=== PATIENT | female | born 1960 | race Caucasian/White ===

== ENCOUNTER → 2018-05-17 11:34 | Outpatient (CLI) | payer OTHER, SELFPAY ==
--- NOTE | 2018-05-17 | DI.MG.S_ITS ---
BILATERAL DIGITAL SCREENING MAMMOGRAM 3D/2D WITH CAD: 05/17/2018 CLINICAL: Routine screening. Personal history of left breast cancer. Comparison is made to exams dated: 05/04/2017 mammogram, 04/12/2016 mammogram, and 03/26/2014 mammogram - [facility]. There are scattered fibroglandular elements in both breasts. Current study was also evaluated with a Computer Aided Detection (CAD) system. There are post operative findings in the left breast including surgical clips and dystrophic calcifications. A linear scar marker overlies the left breast. No significant masses, calcifications, or other findings are seen in either breast. There has been no significant interval change. IMPRESSION: NEGATIVE There is no mammographic evidence of malignancy. A 1 year screening mammogram is recommended. This exam was interpreted at Station ID: [id number]. NOTE: For mammograms, a report in lay terms will be sent to the patient. Approximately 15% of breast malignancies will not be visualized mammographically. In the management of a palpable breast mass, a negative mammogram must not discourage biopsy of a clinically suspicious lesion. Electronically Signed By: Juan Pablo Conti M.D. ecl/:05/19/2018 02:12:55 letter sent: Normal Exam ACR BI-RADS Category 1: Negative 3341F
== END ==
PROVIDERS: Visit Provider Family Medicine
DX: Z12.31 Encounter for screening mammogram for malignant neoplasm of breast (principal); Z85.3 Personal history of malignant neoplasm of breast
CPT/HCPCS: 77063; 77067

== ENCOUNTER → 2019-04-18 10:58 | Outpatient (CLI) | payer OTHER, SELFPAY ==
--- NOTE | 2019-04-20 16:01 | PM.PFT.1 ---
Pulmonary Function Test Referral & Results Date Patient Seen: 04/18/19 Requesting provider: Karin Escobar Results: The spirometry demonstrates an FVC of 3.54 L which is 109% of predicted. The FEV1 was measured at 3.01 L which is 120% of predicted. The FEV1/FVC ratio was 85 which is 109% of predicted. Following the administration of bronchodilator there was no appreciable change to above normal numbers. No lung volumes or diffusing capacity were performed Interpretation: No evidence of obstructive lung disease based on above numbers
== END ==
PROVIDERS: PCP Family Medicine; Visit Provider Family Medicine
DX: R05 Cough (principal); R06.2 Wheezing
CPT/HCPCS: 94060

== ENCOUNTER → 2019-08-07 12:16 | Outpatient (CLI) | payer OTHER, SELFPAY ==
--- NOTE | 2019-08-07 | DI.MG.S_ITS ---
BILATERAL DIGITAL SCREENING MAMMOGRAM 3D/2D WITH CAD: 08/07/2019 CLINICAL: Routine screening. Personal history of left breast cancer. Comparison is made to exams dated: 05/17/2018 mammogram, 05/04/2017 mammogram, 04/12/2016 mammogram, and 03/26/2014 mammogram - [facility]. There are scattered fibroglandular elements in both breasts. Current study was also evaluated with a Computer Aided Detection (CAD) system. There are benign post operative findings in the left breast with linear scar markers overlying the left breast and axilla. No suspicious masses, calcifications, or other findings are seen in either breast. There has been no significant interval change. IMPRESSION: There is no mammographic evidence of malignancy. A 1 year screening mammogram is recommended. This exam was interpreted at Station ID: [id number]. NOTE: For mammograms, a report in lay terms will be sent to the patient. Approximately 15% of breast malignancies will not be visualized mammographically. In the management of a palpable breast mass, a negative mammogram must not discourage biopsy of a clinically suspicious lesion. Electronically Signed By: Juan Pablo Conti M.D. ecl/:08/07/2019 17:21:22 letter sent: Normal Exam ACR BI-RADS Category 2: Benign Finding(s) 3342F
== END ==
PROVIDERS: PCP Family Medicine; Visit Provider Family Medicine
DX: Z12.31 Encounter for screening mammogram for malignant neoplasm of breast (principal); Z85.3 Personal history of malignant neoplasm of breast
CPT/HCPCS: 77063; 77067

== ENCOUNTER → 2021-08-11 11:39 | Outpatient (CLI) | payer OTHER, SELFPAY ==
--- NOTE | 2021-08-11 | DI.MG.S_ITS ---
BILATERAL DIGITAL SCREENING MAMMOGRAM 3D/2D WITH CAD: 08/11/2021 CLINICAL: Routine screening. Personal history of left breast cancer. Comparison is made to exams dated: 08/07/2019 mammogram, 05/17/2018 mammogram, and 05/04/2017 mammogram - [facility]. There are scattered fibroglandular elements in both breasts. Current study was also evaluated with a Computer Aided Detection (CAD) system. There are benign calcifications in the left breast. There also are benign post operative findings in the left breast. No significant masses, calcifications, or other findings are seen in either breast. There has been no significant interval change. IMPRESSION: BENIGN There is no mammographic evidence of malignancy. A 1 year screening mammogram is recommended. This exam was interpreted at Station ID: [id number]. NOTE: For mammograms, a report in lay terms will be sent to the patient. Approximately 15% of breast malignancies will not be visualized mammographically. In the management of a palpable breast mass, a negative mammogram must not discourage biopsy of a clinically suspicious lesion. Electronically Signed By: Rafael sethi/adelia:08/11/2021 13:11:01 letter sent: Normal Exam ACR BI-RADS Category 2: Benign Finding(s) 3342F
== END ==
PROVIDERS: PCP Family Medicine; Referring Provider Family Medicine; Visit Provider Family Medicine
DX: Z12.31 Encounter for screening mammogram for malignant neoplasm of breast (principal); Z85.3 Personal history of malignant neoplasm of breast
CPT/HCPCS: 77063; 77067

== ENCOUNTER 2022-09-29 09:10 | Emergency (ER) | payer OTHER, SELFPAY ==
[2022-09-29 09:11] VITALS: BP 195/97; PULSE 69; RESP 15; TEMP 36.2; O2SAT 98; BMI 31.5
--- NOTE | 2022-09-29 09:16 | DI.RAD.S_ITS ---
PROCEDURE: XR HAND RT MIN 3V INDICATIONS: fall with hand pain approx 10 days TECHNIQUE: 3 views of the hand(s) acquired. COMPARISON: None. FINDINGS: Bones: No displaced fracture. No dislocation. Mild scattered arthrosis. Age-indeterminate bone fragment adjacent to the ulnar styloid is seen. Soft tissues: No suspicious soft tissue calcifications. IMPRESSION: No definitely acute/displaced fracture or dislocation. There is an age indeterminate bone fragment adjacent to the ulnar styloid, probably from prior injury, correlate with point tenderness. Dictated by: Henrique Way M.D. on 09/29/2022 at 9:44 Approved by: Henrique Way M.D. on 09/29/2022 at 9:46
--- NOTE | 2022-09-29 11:39 | ED_ITS ---
HPI - Extremity Injury (Upper) General Chief Complaint: Extremity Injury, Upper Stated Complaint: fell a week ago on rt hand, possible fracture Time Seen by Provider: 09/29/22 11:29 Source: patient Mode of arrival: Ambulatory History of Present Illness HPI narrative: Patient here for evaluation of right hand injury. One week ago she was walking her dog and tripped and fell and stretched out her hand to break her fall. Denies any other injuries. No shoulder or wrist or elbow pain or injury. Has been able to use her hand but has discomfort with gripping. Patient is right- handed. No skin injury. No previous surgery to the hand. No numbness tingling or weakness. She is able to palpate a small nodule at the palmar surface of the 2nd MCP joint. This is new. She does have history of ganglion cyst removal on her right wrist in the past. Related Data Home Medications Medication Instructions Recorded Confirmed B.ANI/L.ACI/L.ALMA/L.PLAN/L.LAUREL 1 cap PO ##0 04/06/11 07/09/22 (Probiotic Formula Capsule) CHOLECALCIFEROL (VITAMIN D3) 400 iu PO Q DAY ##0 04/06/11 07/09/22 [LYSINE] PRN ##0 04/06/11 07/09/22 ascorbic acid (vitamin C) 1,000 mg 1 g PO DAILY 06/18/21 07/09/22 tablet Previous Rx's Medication Instructions Recorded duloxetine 20 mg capsule,delayed See Rx Instructions .Route 07/20/21 release .COMPLEX #30 caps trazodone 50 mg tablet See Rx Instructions .Route 10/06/22 .COMPLEX #30 tabs Allergies Allergy/AdvReac Type Severity Reaction Status Date / Time codeine AdvReac Unknown Itching Verified 09/29/22 09:13 Review of Systems Review of Systems Narrative: GENERAL: negative chills, fatigue, malaise, fever, sweats. HEENT: negative sinus pain, ear pain, sore throat RESPIRATORY: negative dyspnea, cough CARDIOVASCULAR: negative chest pain, palpitations GASTROINTESTINAL: negative nausea, vomiting, abdominal pain : negative dysuria, frequency, hematuria MUSCULOSKELETAL: Positive muscle or bony pain SKIN: negative rash, skin lesions NEUROLOGIC: negative weakness, numbness ROS Unobtainable: All systems reviewed & are unremarkable except as noted in HPI and below Patient History Medical History Adenomatous polyp Anemia Anxiety (~2019) Chronic cough (~2016) Chronic superficial gastritis without bleeding Depression (~2020) Family history of colon cancer in father GERD (gastroesophageal reflux disease) Herpes (~1986) Personal history of breast cancer (~2007) Sleep apnea (~2019) Surgical History Anesthesia History of section (~1995) History of lumpectomy of left breast (~2007) Family History Father Cancer Brother Cancer Social History Smoking Status: Never smoker Smoking Status: Never smoker alcohol intake frequency: holidays/special occasions only Substance Use Type: does not use Exam Narrative Exam Narrative: GENERAL: in no distress, not toxic not dyspneic HEAD: Normocephalic. EXTREMITIES: No gross deformities. Examination right upper extremity nontender elbow and wrist with no gross deformities. No deformity of the right hand. Hand is warm soft and pink with brisk cap refills with light touch intact to fingers and thumb. Able to make a hunter trapper. Palm is nontender but there is a palpable small cyst like nodule at the palmar surface of the 2nd MCP joint. Skin is intact. NEURO: AOx4. SKIN: Warm and dry PSYCH: Not anxious, is cooperative Initial Vital Signs Initial Vital Signs: Vital Signs Temperature 97.1 F L 09/29/22 09:11 Pulse Rate 69 09/29/22 09:11 Respiratory Rate 15 09/29/22 09:11 Blood Pressure 195/97 H 09/29/22 09:11 Pulse Oximetry 98 09/29/22 09:11 Oxygen Delivery Method 09/29/22 09:11 Course Orders Ordered: ED Orders 09/29/22 09:16 XR hand RT min 3V Stat Vital Signs Vital signs: Vital Signs - 8 hr 09/29/22 09:11 Temperature 97.1 F L Pulse Rate 69 Respiratory Rate 15 Blood Pressure 195/97 H Pulse Oximetry 98 Oxygen Delivery Method Room Air MDM - Extremity Injury (Upper) Imaging Data Extremity x-ray #1: Radiologist's Impression: [address] [address] XRay Report Signed Patient: Leonarda Manley MR#: [id number] : 1960 Acct:[id number] Age/Sex: 62 / F Date of Service: 09/29/22 Loc: ED Accession Number: [id number] ?? Procedure: XR hand RT min 3V Ordering Provider: oJseluis Coyle MD PROCEDURE:? XR HAND RT MIN 3V ? INDICATIONS:? fall with hand pain approx 10 days ? TECHNIQUE:? 3 views of the hand(s) acquired.? ? COMPARISON:? None. ? FINDINGS:? ? Bones:? No displaced fracture.? No dislocation.? Mild scattered arthrosis.? Age-indeterminate bone fragment adjacent to the ulnar styloid is seen. ? Soft tissues:? No suspicious soft tissue calcifications.? ? ? IMPRESSION:? No definitely acute/displaced fracture or dislocation.? There is an age indeterminate bone fragment adjacent to the ulnar styloid, probably from prior injury, correlate with point tenderness. ? ? Dictated by: Henrique Way M.D. on 09/29/2022 at 9:44 ? ? Approved by: Henrique Way M.D. on 09/29/2022 at 9:46 ? MDM Narrative Medical decision making narrative: Patient here for evaluation of right hand injury. One week ago she was walking her dog and tripped and fell and stretched out her hand to break her fall. Denies any other injuries. No shoulder or wrist or elbow pain or injury. Has been able to use her hand but has discomfort with gripping. Patient is right- handed. No skin injury. No previous surgery to the hand. No numbness tingling or weakness. She is able to palpate a small nodule at the palmar surface of the 2nd MCP joint. This is new. She does have history of ganglion cyst removal on her right wrist in the past. After exam, no blood work indicated. X-ray is ordered and resulted. It is reassuring. Pain is controlled. No medications required MDM CC: Hand pain Complicating co-morbidities: None Data collected from: Patient Medical records reviewed: No previous visits for hand injury Differential considered: Includes but not limited to fracture/sprain/strain/contusion of the hand Exam documented above, pertinent findings include: Small palpable nodule Imaging studies independently reviewed: X-ray right hand no acute process Treatments: No medications required Re-evaluations: Reviewed results with patient, x-rays reassuring. Nodule likely synovial cyst from injury. Agrees for follow-up with orthopedics. Discussion: Appropriate for discharge home. Patient can follow up with orthopedic provider. Cyst likely ganglion cyst. Pain is controlled. No medications required no splinting required. Return precautions reviewed with patient. Diagnosis: Right hand contusion Discharge Plan Departure Patient Disposition: Home Clinical Impression: Contusion of right hand, initial encounter Instructions: DI for Contusion Activity Restrictions/Additional Instructions: Call provided orthopedic surgeon today or tomorrow for office appointment for evaluation of your hand injury and nodule on your palm. May continue ibuprofen for pain. Return if worse if any questions or concerns Prescriptions: No Action [LYSINE] PRN Qty: 0 CHOLECALCIFEROL (VITAMIN D3) 400 iu PO Q DAY Qty: 0 B.ANI/L.ACI/L.ALMA/L.PLAN/L.LAUREL (Probiotic Formula Capsule) 1 cap PO Qty: 0 duloxetine 20 mg capsule,delayed release(DR/EC) See Rx Instructions .ROUTE .COMPLEX Qty: 30 3RF Dose Instruction: TAKE ONE CAPSULE BY MOUTH EVERY DAY Rx Instructions: TAKE ONE CAPSULE BY MOUTH EVERY DAY trazodone 50 mg tablet See Rx Instructions .ROUTE .COMPLEX Qty: 30 0RF Dose Instruction: TAKE ONE TABLET BY MOUTH AT BEDTIME NEEDED FOR INSOMNIA Rx Instructions: TAKE HALF TABLET BY MOUTH AT BEDTIME NEEDED FOR INSOMNIA ascorbic acid (vitamin C) 1,000 mg tablet 1 g PO DAILY Referrals: Eben Ahn MD [Physician] - Belle Rabago PA-C [Primary Care Provider] - Stand Alone Forms: Patient Portal/API
[2022-09-29 11:51] VITALS: PULSE 74; RESP 18; O2SAT 97
== END 2022-09-29 11:52 | disposition home or self-care (01) ==
PROVIDERS: Emergency Provider Emergency Medicine; PCP Physician Assistant Medical
DX: S60.221A Contusion of right hand, initial encounter (principal); W01.0XXA Fall on same level from slipping, tripping and stumbling without subsequent striking against object, initial encounter; Y93.K1 Activity, walking an animal
CPT/HCPCS: 73130; 99281; 99283

== ENCOUNTER → 2022-11-16 08:44 | Outpatient (CLI) | payer OTHER, SELFPAY ==
--- NOTE | 2022-11-16 08:45 | DI.US.S_ITS ---
LIMITED ULTRASOUND OF LEFT BREAST: 11/16/2022 CLINICAL: Focal left breast pain. Post left lumpectomy. Comparison is made to exams dated: 11/16/2022 mammogram, 08/11/2021 mammogram, 08/07/2019 mammogram, and 05/17/2018 mammogram - [facility]. Real-time ultrasound of the left breast 3 o'clock region was performed. Amin scale images of the real-time examination were reviewed. No significant abnormalities were seen sonographically in the left breast. IMPRESSION: NEGATIVE There is no sonographic evidence of malignancy. There is no abnormality seen in the left breast to correspond with the pain, however, clinical followup is recommended. Return to annual mammogram screening schedule is recommended. This exam was interpreted at Station ID: [id number]. Electronically Signed By: Kvng segundo/adelia:11/16/2022 10:09:42 letter sent: Clinical Evaluation Ultrasound BI-RADS: 1 Negative
--- NOTE | 2022-11-16 08:45 | DI.MG.S_ITS ---
BILATERAL DIGITAL DIAGNOSTIC MAMMOGRAM 3D/2D POST LUMPECTOMY: 11/16/2022 CLINICAL: Breast pain. Comparison is made to exams dated: 08/11/2021 mammogram, 08/07/2019 mammogram, and 05/17/2018 mammogram - [facility]. There are scattered areas of fibroglandular density in both breasts (category b / 25%-50% glandular tissue). There are stable benign post operative findings in the left breast. No significant masses, calcifications, or other findings are seen in either breast. IMPRESSION: INCOMPLETE: NEEDS ADDITIONAL IMAGING EVALUATION There is no abnormality seen in the left breast to correspond with the pain in the lateral aspect, however, ultrasound is recommended. This exam was interpreted at Station ID: [id number]. NOTE: For mammograms, a report in lay terms will be sent to the patient. Approximately 15% of breast malignancies will not be visualized mammographically. In the management of a palpable breast mass, a negative mammogram must not discourage biopsy of a clinically suspicious lesion. Electronically Signed By: Kvng segundo/adelia:11/16/2022 10:08:39 ACR BI-RADS Category 0: Incomplete 3340F
== END ==
PROVIDERS: PCP Physician Assistant Medical; Referring Provider Physician Assistant Medical; Visit Provider Physician Assistant Medical
DX: R92.2 Inconclusive mammogram (principal); N64.4 Mastodynia; Z85.3 Personal history of malignant neoplasm of breast
CPT/HCPCS: 76642; 77066; G0279

== ENCOUNTER → 2023-05-26 10:44 | Outpatient (CLI) | payer OTHER, SELFPAY ==
--- NOTE | 2023-05-26 10:46 | DI.CT.S_ITS ---
PROCEDURE: CT SINUS SCREEN WO CON INDICATIONS: continued illness TECHNIQUE: Noncontrast 3.0 mm axial images acquired from the frontal sinuses to the mid-sella, with coronal and sagittal reformats. For radiation dose reduction, the following was used: automated exposure control, adjustment of mA and/or kV according to patient size. COMPARISON: None. FINDINGS: Image quality: Excellent. Maxillary Sinuses: There is moderate mucosal thickening seen within the maxillary sinuses. Portions of the medial wyman of the maxillary sinuses are demineralized. Ethmoid Air Cells: At least moderate mucosal thickening can be seen throughout the ethmoid air cells. There are several sites bony demineralization seen. Sphenoid Sinuses: There is moderate mucosal thickening seen within the medial left sphenoid sinus, with minimal mucosal thickening involving the anterior right sphenoid sinus. No definite bony changes are seen. Frontal Sinuses: The frontal sinuses are poorly developed. There is mild mucosal thickening seen involving the inferior medial frontal sinuses. Ostiomeatal Complexes: The ostiomeatal complexes are highly constitutionally narrowed and demineralized. No definite Lupillo cells are seen. Miscellaneous: Visualized intra-orbital contents are normal. 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 There is moderate leftward nasal septal deviation, with a leftward directed bony nasal septal spur. Focal left temporomandibular joint degenerative change can be seen. IMPRESSION: Multifocal paranasal sinus disease can be seen, which is overall worst within the maxillary sinuses. Highly constitutionally narrowed ostiomeatal complexes. Areas of bony demineralization are seen, which are consistent with chronic sinusitis. 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 There is moderate leftward nasal septal deviation. Dictated by: Subhash Sutton M.D. on 05/26/2023 at 11:57 Approved by: Subhash Sutton M.D. on 05/26/2023 at 12:02
== END ==
PROVIDERS: PCP Physician Assistant Medical; Referring Provider Physician Assistant Medical; Visit Provider Physician Assistant Medical
DX: J34.3 Hypertrophy of nasal turbinates (principal); J34.2 Deviated nasal septum; J32.4 Chronic pansinusitis; J40 Bronchitis, not specified as acute or chronic; R53.81 Other malaise; R53.83 Other fatigue
CPT/HCPCS: 70486

== ENCOUNTER → 2023-06-01 11:32 | Outpatient (CLI) | payer OTHER, SELFPAY ==
[2023-06-01 20:12] LABS: Add Manual Diff / Slide Review NO; Basophils Absolute Auto 0 /uL (0-100); Basophils Percent Auto 0.7 % (0-2); Eosinophils Absolute Auto 500 /uL (0-450); Eosinophils Percent Auto 7.6 % (2-4); Hematocrit 39.4 % (36-46); Hemoglobin 13.4 g/dL (12.0-16.0); Lymphocytes Absolute Auto 2000 /uL (1100-4500); Mean Corpuscular HGB Conc 34.1 % (30-36); Mean Corpuscular Hemoglobin 32.6 PG (26-34); Mean Corpuscular Volume 95.6 fL (80-100); Monocytes Absolute Auto 400 /uL (0-900); Monocytes Percent Auto 6.7 % (3-14); Neutrophils Absolute Auto 3500 /uL (1500-7000); Platelet Count 280 X10^3/uL (150-400); Red Blood Cell Count 4.12 X10^6/uL (4.0-5.2); White Blood Cell Count 6.4 X10^3/uL (4.5-11.0)
[2023-06-01 20:45] LABS: Alanine Aminotransferase 34 IU/L (<35); Albumin 4.3 g/dL (3.5-5.0); Albumin Globulin Ratio 1.3 (1.0-2.8); Alkaline Phosphatase 55 U/L (38-126); Aspartate Aminotransferase 31 IU/L (14-36); BUN Creatinine Ratio 23.2 (6-22); Bilirubin Total 0.4 mg/dL (0.2-1.3); Blood Urea Nitrogen 16 mg/dL (7-17); Calcium 10.1 mg/dL (8.4-10.2); Carbon Dioxide 25 mmol/L (22-32); Chloride 103 mmol/L (98-107); Estimated Glomerular Filt Rate > 60 mL/min (>60); Globulin 3.2 g/dL (1.7-4.1); Glucose 120 mg/dL (80-110); HEMOLYSIS < 15 (0-50); Potassium 4.1 mmol/L (3.4-5.1); Sodium 139 mmol/L (137-145); Total Protein 7.5 g/dL (6.3-8.2)
[2023-06-01 21:07] LABS: TSH w/ Reflex to FT4 1.62 uIU/mL (0.47-4.68)
[2023-06-01 21:55] LABS: Monotest Negative (Negative)
== END ==
PROVIDERS: PCP Physician Assistant Medical; Visit Provider Physician Assistant Medical
DX: J40 Bronchitis, not specified as acute or chronic (principal); R53.83 Other fatigue; R53.81 Other malaise
CPT/HCPCS: 80053; 84443; 85025; 86318

== ENCOUNTER → 2023-11-22 12:20 | Outpatient (CLI) | payer OTHER, SELFPAY ==
[2023-11-22 19:00] LABS: Add Manual Diff / Slide Review NO; Basophils Absolute Auto 0 /uL (0-100); Basophils Percent Auto 0.6 % (0-2); Eosinophils Absolute Auto 500 /uL (0-450); Eosinophils Percent Auto 6.3 % (2-4); Hematocrit 37.6 % (36-46); Hemoglobin 12.8 g/dL (12.0-16.0); Lymphocytes Absolute Auto 2100 /uL (1100-4500); Lymphocytes Percent Auto 28.6 % (25-40); Mean Corpuscular HGB Conc 34.2 % (30-36); Mean Corpuscular Hemoglobin 32.4 PG (26-34); Mean Corpuscular Volume 94.9 fL (80-100); Monocytes Absolute Auto 400 /uL (0-900); Monocytes Percent Auto 5.2 % (3-14); Neutrophils Absolute Auto 4400 /uL (1500-7000); Neutrophils Percent Auto 59.3 % (50-75); Platelet Count 293 X10^3/uL (150-400); Red Blood Cell Count 3.96 X10^6/uL (4.0-5.2); Red Cell Distribution Width 12.6 % (11.6-14.8); White Blood Cell Count 7.5 X10^3/uL (4.5-11.0)
== END ==
PROVIDERS: PCP Physician Assistant Medical; Visit Provider Physician Assistant Medical
DX: R05.9 Cough, unspecified (principal); R89.8 Other abnormal findings in specimens from other organs, systems and tissues
CPT/HCPCS: 85025

== ENCOUNTER → 2023-11-25 14:30 | Outpatient (CLI) | payer OTHER, SELFPAY ==
--- NOTE | 2023-11-25 14:32 | DI.MG.S_ITS ---
BILATERAL DIGITAL SCREENING MAMMOGRAM 3D/2D WITH CAD: 11/25/2023 CLINICAL: Routine screening. Personal history of left breast cancer. Comparison is made to exams dated: 11/16/2022 mammogram, 08/11/2021 mammogram, and 08/07/2019 mammogram - [facility]. There are scattered areas of fibroglandular density in both breasts (category b / 25%-50% glandular tissue). Current study was also evaluated with a Computer Aided Detection (CAD) system. There are benign post operative findings in the left breast. No significant masses, calcifications, or other findings are seen in either breast. There has been no significant interval change. IMPRESSION: BENIGN There is no mammographic evidence of malignancy. A 1 year screening mammogram is recommended. This exam was interpreted at Station ID: [id number]. NOTE: For mammograms, a report in lay terms will be sent to the patient. Approximately 15% of breast malignancies will not be visualized mammographically. In the management of a palpable breast mass, a negative mammogram must not discourage biopsy of a clinically suspicious lesion. Electronically Signed By: Mary guerrero/adelia:11/25/2023 15:46:19 letter sent: Normal Exam ACR BI-RADS Category 2: Benign Finding(s) 3342F
== END ==
LOC: MAMMO 14:31
PROVIDERS: PCP Physician Assistant Medical; Referring Provider Physician Assistant Medical; Visit Provider Physician Assistant Medical
DX: Z12.31 Encounter for screening mammogram for malignant neoplasm of breast (principal); Z85.3 Personal history of malignant neoplasm of breast; R92.323 Mammographic fibroglandular density, bilateral breasts
CPT/HCPCS: 77063; 77067

== ENCOUNTER → 2024-09-03 08:55 | Outpatient (CLI) | payer OTHER, SELFPAY ==
--- NOTE | 2024-09-03 08:58 | DI.RAD.S_ITS ---
PROCEDURE: XR KNEE RT 3V INDICATIONS: bilateral knee pain, worse on left, hx of arthritis TECHNIQUE: 3 views of the knee were acquired. COMPARISON: [facility] ([facility]), , XR KNEE RT 3V, 09/26/2023, 8:44. FINDINGS: No acute fracture or dislocation. Accounting for interobserver variability, minimal medial and mild patellofemoral osteoarthritis. The lateral compartment is within normal limits. No significant joint effusion. IMPRESSION: Minimal medial and mild patellofemoral osteoarthritis. Dictated by: Carlos Raygoza M.D. on 09/03/2024 at 13:00 Approved by: Carlos Raygoza M.D. on 09/03/2024 at 13:01
--- NOTE | 2024-09-03 08:58 | DI.RAD.S_ITS ---
PROCEDURE: XR KNEE LT 3V INDICATIONS: bilateral knee pain, worse on left, hx of arthritis TECHNIQUE: 3 views of the knee were acquired. COMPARISON: [facility] ([facility]), CR, XR KNEE RT 3V, 09/26/2023, 8:44. FINDINGS: Bones: No fractures or dislocations. No suspicious bony lesions. Soft tissues: No joint effusion. No suspicious soft tissue calcifications. IMPRESSION: No acute bony abnormality or significant effusion. Dictated by: Carlos Raygoza M.D. on 09/03/2024 at 12:51 Approved by: Carlos Raygoza M.D. on 09/03/2024 at 12:52
== END ==
LOC: RAD 08:57
PROVIDERS: PCP Physician Assistant Medical; Referring Provider Naturopath; Visit Provider Naturopath
DX: M17.12 Unilateral primary osteoarthritis, left knee (principal); M25.562 Pain in left knee
CPT/HCPCS: 73562

== ENCOUNTER 2024-10-13 16:53 | Emergency (ER) | payer OTHER, SELFPAY ==
[2024-10-13 17:50] VITALS: BP 183/87; PULSE 65; RESP 16; TEMP 37.1; O2SAT 97; BMI 30.9
--- NOTE | 2024-10-13 18:15 | DI.RAD.S_ITS ---
PROCEDURE: XR SHOULDER RT MIN 2V INDICATIONS: right shoulder injury from accident TECHNIQUE: 3 views of the shoulder were acquired. COMPARISON: None. FINDINGS: Bones: No fractures or dislocations. Calcification along the humeral head. No suspicious bony lesions. Visualized ribs appear intact. Soft tissues: No suspicious soft tissue calcifications. IMPRESSION: No acute bony abnormality. Calcification along the humeral head suggestive of calcific tendinosis. Dictated by: Joseluis Arce M.D. on 10/13/2024 at 18:01 Approved by: Joseluis Arce M.D. on 10/13/2024 at 18:06
--- NOTE | 2024-10-13 18:41 | PC.NURSE ---
Pt reports walking with dog when it pulled her arm. Pt thinks something ripped in her arm. Pt endorses pain deep in shoulder joint socket. Pt denies pain to palpation of clavicle and humerus. No deformities palpated. Cap refill <2 seconds. Radial pulses intact.
--- NOTE | 2024-10-13 20:21 | ED_ITS ---
HPI - Extremity Injury (Upper) General Chief Complaint: Extremity Injury, Upper Stated Complaint: shoulder injury Time Seen by Provider: 10/13/24 20:21 Source: patient Mode of arrival: Ambulatory History of Present Illness HPI narrative: Patient is a 64-year-old female past medical history of anxiety, depression, comes into the ED from home for evaluation of right shoulder pain. She states that earlier today she was walking her 80 lb dog who Dilaudid in the wrong direction and had to pull the dog back. She had immediate pain to her right shoulder but denies any actual numbness weakness tingling to the right extremity. She states that she did not fall did not strike her head not on any blood thinners denies any other pain, she states that she is only having pain to her right shoulder. Related Data Home Medications Medication Instructions Recorded Confirmed B.ANI/L.ACI/L.ALMA/L.PLAN/L.LAUREL 1 cap PO ##0 04/06/11 08/30/24 (Probiotic Formula Capsule) CHOLECALCIFEROL (VITAMIN D3) 400 iu PO Q DAY ##0 04/06/11 08/30/24 [LYSINE] PRN ##0 04/06/11 08/30/24 ascorbic acid (vitamin C) 1,000 mg 1 g PO DAILY 06/18/21 08/30/24 tablet Previous Rx's Medication Instructions Recorded prednisone 20 mg tablet 40 mg (2 x 20 mg) PO DAILY #10 tabs 07/08/23 albuterol sulfate 90 mcg/actuation 2 puff inhalation Q6H PRN 10/24/23 aerosol inhaler shortness of breath or wheezing #8.5 grams baclofen 10 mg tablet 10 mg PO TID #30 tabs 10/24/23 benzonatate 100 mg capsule 100 mg PO BID-TID PRN cough #20 10/24/23 caps cetirizine 10 mg capsule (Zyrtec) 10 mg PO DAILY PRN cough #90 caps 10/24/23 trazodone 50 mg tablet 25 mg (1/2 x 50 mg) .Route 11/28/23 .COMPLEX PRN insomnia #90 tabs celecoxib 100 mg capsule 100 mg PO BID #30 caps 10/02/24 baclofen 10 mg tablet 10 mg PO BEDTIME 1 week #7 tabs 10/13/24 naproxen 500 mg tablet (Naprosyn) 500 mg PO BID PRN pain 1 week #14 10/13/24 tabs Allergies Allergy/AdvReac Type Severity Reaction Status Date / Time codeine AdvReac Unknown Itching Verified 10/13/24 18:05 Review of Systems Review of Systems Narrative: General: Denies fever, chills, weight loss HEENT: Denies headache, eye drainage, eye irritation, head trauma, sore throat, voice change Cardiovascular: Denies any chest pain, palpitations, shortness of breath, tachycardia Respiratory: Denies any shortness of breath, cough, wheeze, stridor GI/: Denies any abdominal pain, nausea, vomiting, diarrhea, bright red blood per rectum, melanotic stools, urinary frequency, urinary retention, dysuria, hematuria MSK: Positive right shoulder pain Denies muscle pains, swelling Skin: Denies any rashes, lesions, discoloration Neuro: Denies any headache, lightheadedness, dizziness, fainting, weakness Psych: Denies SI/HI Patient History Medical History (Updated 10/13/24 @ 20:28 by Tc Vanegas DO) Depression (~2020) Anxiety (~2019) Anemia Herpes (~1986) GERD (gastroesophageal reflux disease) Sleep apnea (~2019) Personal history of breast cancer (~2007) Family history of colon cancer in father Chronic cough (~2016) Adenomatous polyp Chronic superficial gastritis without bleeding Surgical History Anesthesia History of section (~1995) History of lumpectomy of left breast (~2007) Family History Father Cancer Brother Cancer Social History Smoking Status: Never smoker Smoking Status: Never smoker alcohol intake frequency: holidays/special occasions only Exam Narrative Exam Narrative: General: Cooperative, comfortable, well-developed, not in acute distress HEENT: Normocephalic, atraumatic, PERRLA, normal sclera, eyelids normal, Neck: Active full range of motion, atraumatic Chest: Normal to inspection, negative crepitus, no overlying erythema ecchymosis Respiratory: Normal respiratory effort, not in acute respiratory distress, clear to auscultation bilaterally negative cough, wheeze, tachypnea, rhonchi, rales Cardiology: Regular rate rhythm negative gallop, murmur, rubs GI/: Normal to inspection, soft, nonrigid, no tenderness to palpation, exam deferred MSK: Patient with minor tenderness to palpation of the right shoulder, decreased active range of motion, however full passive range of motion, no crepitus, no tenderness to palpation of the elbow wrist neurovascularly intact no other tenderness to palpation of any bony prominences Skin: No rashes lesions noted Neuro: Alert awake oriented x3, moves all 4 extremities spontaneously, cranial nerves intact, able to answer all questions appropriately follows commands appropriately Psych: Cooperative, negative suicidal or homicidal ideations Initial Vital Signs Initial Vital Signs: Vital Signs Temperature 98.8 F 10/13/24 17:50 Pulse Rate 65 10/13/24 17:50 Respiratory Rate 16 10/13/24 17:50 Blood Pressure 183/87 H 10/13/24 17:50 Pulse Oximetry 97 10/13/24 17:50 Oxygen Delivery Method Room Air 10/13/24 17:50 Course Orders Ordered: ED Orders 10/13/24 18:15 XR shoulder RT min 2V Stat Discontinued Medications Baclofen (Baclofen 10 Mg Tablet) 10 mg PO NOW ONE Stop: 10/13/24 20:22 Last Admin: 10/13/24 20:36 Dose: 10 mg Documented By: JEFFERY Naproxen (Naproxen 250 Mg Tablet) 500 mg PO NOW ONE Stop: 10/13/24 20:22 Last Admin: 10/13/24 20:31 Dose: 500 mg Documented By: JEFFERY Vital Signs Vital signs: Vital Signs - 8 hr 10/13/24 17:50 Temperature 98.8 F Pulse Rate 65 Respiratory Rate 16 Blood Pressure 183/87 H Pulse Oximetry 97 Oxygen Delivery Method Room Air MDM - Extremity Injury (Upper) Differential Diagnosis Differential diagnosis: Likely other (Strain, sprain, rotator cuff tear) Imaging Data Extremity x-ray #1: Radiologist's Impression: [address] [address] XRay Report Signed Patient: Leonarda Manley MR#: [id number] : 1960 Acct:[id number] Age/Sex: 64 / F Date of Service: 10/13/24 Loc: ED Accession Number: [id number] Procedure: XR shoulder RT min 2V Ordering Provider: Alee Higgins D.O. PROCEDURE: XR SHOULDER RT MIN 2V INDICATIONS: right shoulder injury from accident TECHNIQUE: 3 views of the shoulder were acquired. COMPARISON: None. FINDINGS: Bones: No fractures or dislocations. Calcification along the humeral head. No suspicious bony lesions. Visualized ribs appear intact. Soft tissues: No suspicious soft tissue calcifications. IMPRESSION: No acute bony abnormality. Calcification along the humeral head suggestive of calcific tendinosis. MDM Narrative Medical decision making narrative: 64-year-old female no significant past medical history presenting to the emergency department for right shoulder pain after being pulled by her 80 lb dog, no trauma no falls, only complaining of right shoulder pain was placed prophylactically any sling by EMS, on exam patient with decreased active range of motion secondary to pain but has full passive range of motion, x-ray without any signs of avulsion fractures, no tenderness to palpation of the elbow wrist neurovascularly intact otherwise. Patient is physical exam most likely secondary to acute strain sprain or rotator cuff tear. Patient will be sent home in a right sling for comfort symptomatic relief as well as instructed follow up with Orthopedic surgery and primary care in outpatient setting, she was given strict return precautions, she verbalized understanding of this and agrees to being discharged home with outpatient follow up Discharge Plan Departure Patient Disposition: Home Clinical Impression: Acute pain of right shoulder Instructions: DI for Rotator Cuff Injury Activity Restrictions/Additional Instructions: Please follow up with the primary care and orthopedic surgery Please read the discharge instructions sheet carefully and bring all papers to all doctor follow-up visits, as it may contain information that your doctor may want to see. Disease processes change and evolve, if your symptoms worsen or if you develop any new symptoms that are concerning to you please return for evaluation. Your evaluation today does not show any evidence of any life- threatening/serious illnesses requiring admission to the hospital or surgery. Please follow-up with your doctor for re-evaluation in approximately 1 day. Seek immediate medical attention for any worrisome symptoms. *If you do not have a primary care provider please contact the [facility] Resource line at [phone]. They will ask some questions about your medical history and help get you set up with a doctor in the community. Prescriptions: New naproxen [Naprosyn] 500 mg tablet 500 mg PO BID PRN (Reason: pain) 7 Days Qty: 14 0RF baclofen 10 mg tablet 10 mg PO BEDTIME 7 Days Qty: 7 0RF No Action [LYSINE] PRN Qty: 0 CHOLECALCIFEROL (VITAMIN D3) 400 iu PO Q DAY Qty: 0 B.ANI/L.ACI/L.ALMA/L.PLAN/L.LAUREL (Probiotic Formula Capsule) 1 cap PO Qty: 0 albuterol sulfate 90 mcg/actuation HFA aerosol inhaler 2 puff inhalation Q6H PRN (Reason: shortness of breath or wheezing) Qty: 8.5 0RF trazodone 50 mg tablet 25 mg .ROUTE .COMPLEX PRN (Reason: insomnia) Qty: 90 3RF Rx Instructions: 25 mg PRN; celecoxib 100 mg capsule 100 mg PO BID Qty: 30 0RF Zyrtec 10 mg capsule 10 mg PO DAILY PRN (Reason: cough) Qty: 90 0RF benzonatate 100 mg capsule 100 mg PO BID-TID PRN (Reason: cough) Qty: 20 0RF baclofen 10 mg tablet 10 mg PO TID Qty: 30 0RF ascorbic acid (vitamin C) 1,000 mg tablet 1 g PO DAILY prednisone 20 mg tablet 40 mg PO DAILY Qty: 10 0RF Referrals: Eben Ahn MD [Physician] - 1 week Belle Rabago PA-C [Primary Care Provider] - Stand Alone Forms: Patient Portal/API/Survey
[2024-10-13] MEDS: NAPROXEN 250 MG TABLET 500 MG PO (20:31)
[2024-10-13] MEDS: BACLOFEN 10 MG TABLET PO (20:36)
== END 2024-10-13 20:37 | disposition home or self-care (01) ==
PROVIDERS: Emergency Provider Student in an Organized Health Care Education/Training Program; PCP Physician Assistant Medical
DX: M25.511 Pain in right shoulder (principal); X58.XXXA Exposure to other specified factors, initial encounter
CPT/HCPCS: 73030; 99283

== ENCOUNTER → 2024-11-14 10:19 | Outpatient (CLI) | payer OTHER, SELFPAY ==
[2024-11-14 19:17] LABS: Add Manual Diff / Slide Review NO; Basophils Absolute Auto 0 /uL (0-100); Basophils Percent Auto 0.8 % (0-2); Eosinophils Absolute Auto 400 /uL (0-450); Hematocrit 38.2 % (36-46); Hemoglobin 12.9 g/dL (12.0-16.0); Lymphocytes Absolute Auto 2000 /uL (1100-4500); Lymphocytes Percent Auto 32.7 % (25-40); Mean Corpuscular HGB Conc 33.8 % (30-36); Mean Corpuscular Hemoglobin 32.4 PG (26-34); Mean Corpuscular Volume 95.9 fL (80-100); Monocytes Absolute Auto 400 /uL (0-900); Monocytes Percent Auto 7.4 % (3-14); Neutrophils Absolute Auto 3200 /uL (1500-7000); Neutrophils Percent Auto 52.1 % (50-75); Platelet Count 302 X10^3/uL (150-400); Red Blood Cell Count 3.98 X10^6/uL (4.0-5.2); Red Cell Distribution Width 12.3 % (11.6-14.8)
[2024-11-14 19:42] LABS: Alanine Aminotransferase 34 IU/L (<35); Albumin 4.6 g/dL (3.5-5.0); Albumin Globulin Ratio 1.6 (1.0-2.8); Alkaline Phosphatase 60 U/L (38-126); Aspartate Aminotransferase 35 IU/L (14-36); BUN Creatinine Ratio 20.3 (6-22); Bilirubin Total 0.6 mg/dL (0.2-1.3); Blood Urea Nitrogen 16 mg/dL (7-17); Calcium 9.8 mg/dL (8.4-10.2); Carbon Dioxide 25 mmol/L (22-32); Chloride 103 mmol/L (98-107); Cholesterol 217 mg/dL (140-199); Estimated Glomerular Filt Rate > 60 mL/min (>60); Globulin 2.9 g/dL (1.7-4.1); Glucose 91 mg/dL (80-110); HDL Cholesterol 40 mg/dL (40-60); HEMOLYSIS < 15 (0-50); LDL Cholesterol Calculated 152 mg/dL (<100); Potassium 4.4 mmol/L (3.4-5.1); Sodium 137 mmol/L (137-145); Total Protein 7.5 g/dL (6.3-8.2); Triglycerides 125 mg/dL (35-150)
[2024-11-14 19:59] LABS: TSH w/ Reflex to FT4 1.39 uIU/mL (0.47-4.68)
[2024-11-16 11:36] LABS: Rubeola Measles IgG > 300.0 AU/mL (Immune >16.4)
== END ==
PROVIDERS: PCP Physician Assistant Medical; Visit Provider Physician Assistant Medical
DX: R89.8 Other abnormal findings in specimens from other organs, systems and tissues (principal); M16.0 Bilateral primary osteoarthritis of hip; Z51.81 Encounter for therapeutic drug level monitoring; Z79.1 Long term (current) use of non-steroidal anti-inflammatories (NSAID); D64.9 Anemia, unspecified; R03.0 Elevated blood-pressure reading, without diagnosis of hypertension; Z91.89 Other specified personal risk factors, not elsewhere classified
CPT/HCPCS: 80053; 80061; 84443; 85025; 86762; 86765